=== PATIENT | female | born 2000 | race Caucasian/White ===

== ENCOUNTER 2023-10-20 14:34 | Emergency (ER) | payer OTHER ==
[~2023-10-20] VITALS: Ht 152.4 cm; Wt 46.7 kg
[2023-10-20 14:34] VITALS: BP 127/70; TEMP 99.9; O2SAT 98
[2023-10-20] MEDS ORDERED: REGL5TAB2 PO (14:42)
[2023-10-20 15:31] LABS: BASO % 0.1 % (0.0-1.0); HEMATOCRIT 40.1 % (36.0-47.0); HEMOGLOBIN 13.9 g/dl (12.0-15.5); LYMPH # 0.4 10^3/uL (1.5-5.0); LYMPH % 3.8 % (24.0-44.0); MEAN CORPUSCULAR HEMOGLOBIN 30.1 pg (27.0-33.0); MEAN CORPUSCULAR HGB CONC 34.7 g/dl (32.0-36.5); MEAN CORPUSCULAR VOLUME 86.8 fl (80.0-96.0); MONO # 0.4 10^3/uL (0.0-0.8); MONO % 3.1 % (2.0-8.0); NEUTROPHILS # 10.4 10^3/uL (1.5-8.5); NEUTROPHILS % 92.6 % (36.0-66.0); PLATELET COUNT, AUTOMATED 246 10^3/uL (150-450); RED BLOOD COUNT 4.62 10^6/uL (4.00-5.40); WHITE BLOOD COUNT 11.2 10^3/uL (4.0-10.0)
[2023-10-20 15:53] LABS: LIPASE 23 U/L (12-53)
[2023-10-20 15:55] LABS: ALBUMIN 4.5 G/DL (3.2-5.2); ALKALINE PHOSPHATASE 83 U/L (46-116); ALT/SGPT 17 U/L (7.0-40); AST/SGOT 10 U/L (<34); BILIRUBIN,DIRECT 0.2 MG/DL (<0.4); BILIRUBIN,TOTAL 0.7 MG/DL (0.3-1.2); BLOOD UREA NITROGEN 14 MG/DL (9-23); CALCIUM LEVEL 9.1 MG/DL (8.5-10.1); CARBON DIOXIDE LEVEL 30 MMOL/L (20-31); CHLORIDE LEVEL 100 MMOL/L (98-107); CREATININE FOR GFR 0.66 MG/DL (0.55-1.30); GLOMERULAR FILTRATION RATE > 60.0 (>60); GLUCOSE, FASTING 124 MG/DL (60-100); POTASSIUM SERUM 3.4 MMOL/L (3.5-5.1); SODIUM LEVEL 136 MMOL/L (136-145); TOTAL PROTEIN 7.7 G/DL (5.7-8.2)
[2023-10-20] MEDS: METOCLOPRAMIDE INJ 10MG/2ML VIAL IV ONE (16:11)
[2023-10-20] MEDS: NS 1,000 ML IV ONE (16:11)
[2023-10-20 16:23] LABS: HCG, SERUM QUALITATIVE NEGATIVE (NEGATIVE)
[2023-10-20] MEDS ORDERED: CAPS0.022 TOP (17:45)
== END 2023-10-20 17:59 | disposition home or self-care (01) ==
LOC: M ED 14:34
DX: R11.15 Cyclical vomiting syndrome unrelated to migraine (principal); Z88.8 Allergy status to other drugs, medicaments and biological substances
CPT/HCPCS: 80048; 80076; 83690; 84703; 85025; 96360; 96361; 96374; 99283; J2765

== ENCOUNTER 2024-07-10 11:52 | Emergency (ER) | payer OTHER, SELFPAY ==
[~2024-07-10] VITALS: Ht 162.6 cm; Wt 46.6 kg
[~2024-07-10 11:52] MED LIST: CAPS0.022 TOP; REGL5TAB2 PO
[2024-07-10 12:33] VITALS: TEMP 99.2
[2024-07-10 13:27] LABS: BASO % 0.1 % (0.0-1.0); HEMATOCRIT 41.3 % (36.0-47.0); HEMOGLOBIN 14.3 g/dl (12.0-15.5); LYMPH # 0.8 10^3/uL (1.5-5.0); LYMPH % 9.8 % (24.0-44.0); MEAN CORPUSCULAR HEMOGLOBIN 29.8 pg (27.0-33.0); MEAN CORPUSCULAR HGB CONC 34.6 g/dl (32.0-36.5); MONO # 0.6 10^3/uL (0.0-0.8); MONO % 7.5 % (2.0-8.0); NEUTROPHILS # 6.4 10^3/uL (1.5-8.5); NEUTROPHILS % 82.3 % (36.0-66.0); PLATELET COUNT, AUTOMATED 278 10^3/uL (150-450); WHITE BLOOD COUNT 7.7 10^3/uL (4.0-10.0)
[2024-07-10 13:55] LABS: LIPASE 23 U/L (12-53)
[2024-07-10 13:57] LABS: ALBUMIN 4.5 G/DL (3.2-5.2); ALKALINE PHOSPHATASE 68 U/L (35-104); ALT/SGPT 15 U/L (7.0-40); AST/SGOT 12 U/L (<34); BILIRUBIN,DIRECT 0.3 MG/DL (<0.4); BILIRUBIN,TOTAL 0.8 MG/DL (0.3-1.2); BLOOD UREA NITROGEN 11 MG/DL (9-23); CALCIUM LEVEL 9.5 MG/DL (8.5-10.1); CARBON DIOXIDE LEVEL 32 MMOL/L (20-31); CHLORIDE LEVEL 95 MMOL/L (98-107); CREATININE FOR GFR 0.69 MG/DL (0.55-1.30); GLOMERULAR FILTRATION RATE > 90.0 (>60); GLUCOSE, FASTING 114 MG/DL (60-100); HCG, SERUM QUALITATIVE NEGATIVE (NEGATIVE); POTASSIUM SERUM 3.5 MMOL/L (3.5-5.1); SODIUM LEVEL 136 MMOL/L (136-145); TOTAL PROTEIN 7.7 G/DL (5.7-8.2)
[2024-07-10 15:15] VITALS: BP 135/84; O2SAT 100
[2024-07-10] MEDS: CAPSAICIN 0.025% CR 60 GM TOP STA (15:25)
[2024-07-10] MEDS: METOCLOPRAMIDE INJ 10 MG/2 ML VIAL IV ONE (15:42)
[2024-07-10] MEDS ORDERED: CAPSAICIN 0.025% CR 60 GM TOP SCH (21:00)
== END 2024-07-10 16:49 | disposition home or self-care (01) ==
LOC: M ED 11:52
DX: F12.188 Cannabis abuse with other cannabis-induced disorder (principal); Z79.899 Other long term (current) drug therapy; Z88.8 Allergy status to other drugs, medicaments and biological substances
CPT/HCPCS: 80048; 80076; 83690; 84703; 85025; 96374; 99283; J2765

== ENCOUNTER 2024-09-09 09:38 | Emergency (ER) | payer BC, OTHER, SELFPAY ==
[~2024-09-09] VITALS: Ht 165.1 cm; Wt 47.8 kg
[2024-09-09] MEDS: CAPSAICIN 0.025% CR 60 GM TOP ONE (10:31)
[2024-09-09] MEDS: NS (Normal Saline) 0.9% 1,000 ML IV ONE (10:33)
[2024-09-09 10:44] LABS: BASO # 0.0 10^3/uL (0.0-0.2); BASO % 0.1 % (0.0-1.0); EOS # 0.0 10^3/uL (0.0-0.5); EOS % 0.4 % (0.0-3.0); LYMPH # 1.0 10^3/uL (1.5-5.0); LYMPH % 14.6 % (24.0-44.0); MONO # 0.6 10^3/uL (0.0-0.8); MONO % 8.2 % (2.0-8.0); NEUTROPHILS # 5.1 10^3/uL (1.5-8.5); NEUTROPHILS % 76.4 % (36.0-66.0); PLATELET COUNT, AUTOMATED 304 10^3/uL (150-450)
[2024-09-09 11:10] LABS: ALT/SGPT 16 U/L (7.0-40); AST/SGOT 16 U/L (<34); CALCIUM LEVEL 9.3 MG/DL (8.5-10.1); CARBON DIOXIDE LEVEL 31 MMOL/L (20-31); CHLORIDE LEVEL 96 MMOL/L (98-107); CREATININE FOR GFR 0.68 MG/DL (0.55-1.30); GLOMERULAR FILTRATION RATE > 90.0 (>60); HCG, SERUM QUALITATIVE NEGATIVE (NEGATIVE); POTASSIUM SERUM 3.6 MMOL/L (3.5-5.1); SODIUM LEVEL 137 MMOL/L (136-145)
[2024-09-09] MEDS: HALOPERIDOL LACTATE 5 MG/ML VIAL IV ONE (11:30)
[2024-09-09] MEDS ORDERED: PROM25TA12 PO (12:24)
[2024-09-09 12:28] VITALS: BP 104/61; TEMP 98.2; O2SAT 98
[2024-09-10] MEDS ORDERED: PRED20TA PO (02:25)
[2024-09-10] MEDS ORDERED: BENA25CA4 PO (02:25)
== END 2024-09-09 12:32 | disposition home or self-care (01) ==
LOC: M ED 09:38
DX: F12.188 Cannabis abuse with other cannabis-induced disorder (principal); F41.9 Anxiety disorder, unspecified; F17.200 Nicotine dependence, unspecified, uncomplicated; Z88.8 Allergy status to other drugs, medicaments and biological substances
CPT/HCPCS: 36415; 80048; 80076; 84703; 85025; 96361; 96374; 96375; 99284; J1630; J2765

== ENCOUNTER 2024-09-10 00:36 | Emergency (ER) | payer BC, OTHER, SELFPAY ==
[~2024-09-10] VITALS: Ht 152.4 cm; Wt 48.5 kg
[~2024-09-10 00:36] MED LIST changes: +PROM25TA12 PO
[2024-09-10 00:39] VITALS: TEMP 99.1; O2SAT 99
[2024-09-10 01:02] VITALS: BP 141/83
[2024-09-10] MEDS: NS (Normal Saline) 0.9% 1,000 ML IV ONE (01:38)
[2024-09-10] MEDS: diphenhydrAMINE 50 MG/ML VIAL IV STA (01:41)
[2024-09-10] MEDS ORDERED: PRED20TA PO (02:25)
[2024-09-10] MEDS ORDERED: BENA25CA4 PO (02:25)
== END 2024-09-10 02:37 | disposition home or self-care (01) ==
LOC: M ED 00:36
DX: R25.2 Cramp and spasm (principal); T43.4X5A Adverse effect of butyrophenone and thiothixene neuroleptics, initial encounter; F12.188 Cannabis abuse with other cannabis-induced disorder; Z88.8 Allergy status to other drugs, medicaments and biological substances
CPT/HCPCS: 96374; 96375; 99284; J1200; J2919